=== PATIENT | female | born 1995 | race Caucasian/White ===

== ENCOUNTER 2019-09-15 09:51 | Emergency (ER) | payer OTHER, MEDICAID ==
[~2019-09-15] VITALS: Ht 167.6 cm; Wt 68.5 kg
--- NOTE | 2019-09-15 09:56 | NUR ---
biblapd, from [facility], in custody, needs medical clearance for otb, needs test prior booking. on room air, breathing evenly and unlabored. sitter and lapd at bedside. will continue to monitor accoridingly.
[2019-09-15 10:50] LABS: CALCIUM, SERUM 8.8 mg/dL (8.5-10.1); CREATININE 0.5 mg/dL (0.6-1.3); POTASSIUM 3.2 mmol/L (3.5-5.1)
[2019-09-15 10:53] LABS: BASOPHILS # (AUTO) 0.1 /CMM (0.0-0.2); BASOPHILS % (AUTO) 0.5 % (0.0-2.0); HEMATOCRIT 42 % (33-45); LYMPHOCYTES # (AUTO) 1.6 /CMM (0.8-4.8); LYMPHOCYTES % (AUTO) 13.9 % (20.0-44.0); MEAN CORPUSCULAR HGB CONC 33 g/dl (31.0-36.0); MEAN CORPUSCULAR VOLUME 82 fL (82-100); MONOCYTES # (AUTO) 0.5 /CMM (0.1-1.30); MONOCYTES % (AUTO) 4.5 % (2.0-12.0); NEUTROPHILS # (AUTO) 9.1 /CMM (1.8-8.9); NEUTROPHILS % (AUTO) 81.1 % (43.0-81.0); PLATELET COUNT (AUTO) 367 /CMM (150-450); RED BLOOD CELL COUNT(AUTO) 5.12 MIL/uL (4.0-5.2); WHITE BLOOD COUNT (AUTO) 11.2 K/uL (4.3-11.0)
[2019-09-15 11:18] LABS: ALBUMIN 3.7 g/dL (3.4-5.0); BILIRUBIN,DIRECT 0.1 mg/dL (0.0-0.2); BILIRUBIN,TOTAL 0.6 mg/dL (0.2-1.0); TOTAL PROTEIN, SERUM 7.8 g/dL (6.4-8.2)
[2019-09-15 12:43] VITALS: BP 125/71
--- NOTE | 2019-09-15 12:44 | NUR ---
Patient does not wish to proceed with medical care recommended by Dr. Urbano. Patient given information related to possible complications, up to and including , which could occur as a result of leaving the hospital at this time. Patient verbalizes understanding of risks involved due to leaving against medical advice. Patient has signed AMA form.
== END 2019-09-15 12:44 | disposition left against medical advice (07) ==
LOC: ER 09:54
DX: Z34.91 Encounter for supervision of normal pregnancy, unspecified, first trimester (principal); F11.10 Opioid abuse, uncomplicated; Z3A.01 Less than 8 weeks gestation of pregnancy
CPT/HCPCS: 36415; 76805-TC; 80048-TC; 80076-TC; 84702-TC; 84703-TC; 85025-TC